=== PATIENT | female | born 1995 | race Hispanic/Latino ===

== ENCOUNTER 2016-04-22 21:51 | Emergency (ER) | payer MEDICAID ==
[2016-04-22 22:07] VITALS: BP 115/78
[2016-04-22 22:57] LABS: Basophils % (Auto) 0.5 % (0.0-1.8); Eosinophils % (Auto) 2.2 % (0.0-4.3); Hematocrit 35.5 % (30.3-42.9); Hemoglobin 12.2 gm/dl (10.1-14.3); Mean Corpuscular HGB Conc 34 % (30-34); Mean Corpuscular Hemoglobin 30 pg (28-32); Mean Corpuscular Volume 86 fl (79-97); Platelet Count 289 K/mm3 (140-440); Red Blood Count 4.12 M/mm3 (3.65-5.03); Red Cell Distribution Width 12.6 % (13.2-15.2); White Blood Count 7.5 K/mm3 (4.5-11.0)
[2016-04-23 00:21] LABS: Bilirubin,Urine NEG (Negative); Blood,Urine LG (Negative); Ketones,Urine NEG (Negative); Leukocyte Esterase,Urine NEG (Negative); Mucus,Urine FEW /HPF; Nitrite,Urine NEG (Negative); Urobilinogen,Urine < 2.0 mg/dL (<2.0)
[2016-04-23 00:30] LABS: RBC,Urine > 182.0 /HPF (0.0-6.0)
[2016-04-23] MEDS ORDERED: NACL 0.9% 1000 ML 1,000 ML IV ONE (00:56)
--- NOTE | 2016-04-23 02:06 | Ultrasound Report ---
FINAL REPORT PROCEDURE: US OB \T\lt; = 14 WEEKS FETUS TECHNIQUE: Real-time transabdominal and transvaginal sonography of the uterus, placenta, amniotic fluid, adnexa, and fetus was performed with image documentation. Measurements were obtained to determine age/size. M-mode Doppler was used to document heartbeat. CPT 36282 and 07116 HISTORY: vaginal bleeding, COMPARISON: No prior studies are available for comparison. FINDINGS: The uterus size is 6.7 x 3.9 x 4.3 centimeters. The endometrium normal at 3 millimeters. There is no evidence of a intrauterine . The right ovary size is 2 x 1.4 x 1.9 centimeters. The echogenicity is normal. The left ovary size is 1.4 x 0.8 x 1.4 centimeters. The left ovary has a normal appearance. The findings may indicate multiple etiologies including early or failure. Ectopic is not excluded on the basis of this single study. The patient will need followup studies which may include serial beta HCG levels and possibly repeat ultrasound approximately 14 days. IMPRESSION: The uterus and both ovaries have a normal appearance. No gestational sac is identified at this time. This may represent multiple etiologies as discussed above. The patient will need followup studies which should include serial beta HCG levels and perhaps repeat ultrasound approximately 14 days.
[2016-04-23] MEDS ORDERED: TYLENOL PO ONE (02:07)
--- NOTE | 2016-04-23 02:07 | Ultrasound Report ---
FINAL REPORT PROCEDURE: US OB \T\lt; = 14 WEEKS FETUS TECHNIQUE: Real-time transabdominal and transvaginal sonography of the uterus, placenta, amniotic fluid, adnexa, and fetus was performed with image documentation. Measurements were obtained to determine age/size. M-mode Doppler was used to document heartbeat. CPT 49166 and 72845 HISTORY: vaginal bleeding, COMPARISON: No prior studies are available for comparison. FINDINGS: The uterus size is 6.7 x 3.9 x 4.3 centimeters. The endometrium normal at 3 millimeters. There is no evidence of a intrauterine . The right ovary size is 2 x 1.4 x 1.9 centimeters. The echogenicity is normal. The left ovary size is 1.4 x 0.8 x 1.4 centimeters. The left ovary has a normal appearance. The findings may indicate multiple etiologies including early or failure. Ectopic is not excluded on the basis of this single study. The patient will need followup studies which may include serial beta HCG levels and possibly repeat ultrasound approximately 14 days. IMPRESSION: The uterus and both ovaries have a normal appearance. No gestational sac is identified at this time. This may represent multiple etiologies as discussed above. The patient will need followup studies which should include serial beta HCG levels and perhaps repeat ultrasound approximately 14 days.
--- NOTE | 2016-04-23 03:48 | Emergency Department Report ---
HPI - General Chief Complaint: Vaginal Bleeding Time Seen by Provider: 04/23/16 01:01 - HPI HPI: The patient is a 20-year-old female, , EGA 3-4 weeks, who presents for evaluation of abdominal pain and vaginal bleeding. The patient reports suprapubic abdominal pain, cramping in quality, mild in severity, for the past 3 days, although waxing and waning, constant since onset. She also reports associated vaginal spotting. The patient denies fever, chills, night sweats, diarrhea, blood in the stool, dark tarry stool, dysuria, hematuria, flank pain, genital discharge, inability to pass flatus. ED Past Medical Hx - Past Medical History Previous Medical History?: No - Surgical History Past Surgical History?: Yes Additional Surgical History: open heart surgery as infant - Social History Smoking Status: Never Smoker Substance Use Type: None - Medications Home Medications: Home Medications Medication Instructions Recorded Confirmed Last Taken Type Acetaminophen/Codeine [Tylenol #3] 1 tab PO Q6H PRN #7 tab 04/23/16 Unknown Rx Pnv95/Ferrous Fumarate/FA 1 each PO QDAY #31 tablet 04/23/16 Unknown Rx [ Vitamin Tablet] ED Review of Systems ROS: Stated complaint: VAGINAL BLEEDING Other details as noted in HPI Constitutional: denies: fever ENT: denies: throat or neck pain Respiratory: denies: cough, shortness of breath Cardiovascular: denies: chest pain Endocrine: denies unexplained weight loss or gain Gastrointestinal: reports abdominal pain, nausea Genitourinary: reports VB denies: dysuria Musculoskeletal: denies: leg swelling Skin: denies: rash Neurological: denies: headache Hematological/Lymphatic: denies: easy bleeding or easy bruising Psych: denies sadness or hopelessness Physical Exam - Physical Exam Vital Signs: Vital Signs 04/22/16 22:04 Temperature 98.5 F Pulse Rate 65 Respiratory 18 Rate Blood Pressure 115/78 Blood Pressure 115/78 [Left] O2 Sat by Pulse 100 Oximetry Physical Exam: General: well-nourished, well-developed, no acute distress Head: Normocephalic, atraumatic Eyes: normal sclera ENT: Mucous membranes are pink and moist Neck: trachea midline, neck supple, No neck stiffness, no cervical adenopathy Respiratory: Breath sounds equal bilaterally, no wheezing, rales, or rhonchi Cardio: S1 and S2 present, no murmurs, rubs, gallops, capillary refill is brisk Abdomen: Normoactive bowel sounds, soft abdomen, suprapubic tenderness to palpation present, no rigidity, no guarding or rebound tenderness Musc: No pitting edema Skin: No rash Neuro: no facial drooping, normal speech Psych: Normal affect ED Course Vital Signs 04/22/16 22:04 Temperature 98.5 F Pulse Rate 65 Respiratory 18 Rate Blood Pressure 115/78 Blood Pressure 115/78 [Left] O2 Sat by Pulse 100 Oximetry ED Medical Decision Making - Lab Data Result diagrams: 04/22/16 22:35 - Medical Decision Making The patient was seen and examined by myself. The patient is placed on a surveillance monitor and continuous pulse ox. On initial evaluation, the patient was found to be in no distress. Evaluation orders are placed. The patient is given 1 L normal saline fluid bolus and Tylenol for her pain. Lab results were non-concerning, and revealed B hCG of 1400 with positive Rh blood screen. Ultrasound of the pelvis is negative for gestational sac. The patient was reevaluated and reported that their symptoms were markedly improved. The patient is stable for discharge with outpatient follow-up. The patient is given follow-up and return instructions, including to obtain repeat beta hCG in 48 hours. The patient expressed understanding and agreed with the plan. The patient is discharged in stable condition. Critical care attestation.: If time is entered above; I have spent that time in minutes in the direct care of this critically ill patient, excluding procedure time. ED Disposition Clinical Impression: Threatened miscarriage in early , Vaginal bleeding, Suprapubic pain Disposition: DISCHARGED TO HOME OR SELFCARE Is pt being admited?: No Does the pt Need Aspirin: No Condition: Stable Instructions: Threatened Miscarriage (ED), Abdominal Pain in (ED) Additional Instructions: Your ultrasound was unable to identify a normal intrauterine , and also was not able to rule out an ectopic . Make sure to follow-up with your [facility] within the next 48 hours for repeat B-HCG testing and trending. Your beta hCG level should double in 2 days if your is progressing as normal. You could have an ectopic and you must immediately present to an emergency department should you develop worsening of your symptoms or severe pain, vaginal bleeding, lightheadedness, passing out, confusion, or fever. Prescriptions: Acetaminophen/Codeine [Tylenol #3] 1 tab PO Q6H PRN #7 tab PRN Reason: Pain Pnv95/Ferrous Fumarate/FA [ Vitamin Tablet] 1 each PO QDAY #31 tablet Referrals: PRIMARY CARE, [Primary Care Provider] - 3-5 Days [facility] [Provider Group] - 3-5 Days Time of Disposition: 03:07
== END 2016-04-23 04:25 | disposition home or self-care (01) ==
LOC: ED 21:51
DX: O20.0 Threatened abortion (principal); Z3A.01 Less than 8 weeks gestation of pregnancy
CPT/HCPCS: 36415; 76801; 76817; 81001; 84702; 85025; 86900; 86901; 96360; 99284; J7030; 86850

== ENCOUNTER 2016-06-26 14:27 | Emergency (ER) | payer MEDICAID ==
[2016-06-26 15:30] LABS: Basophils % (Auto) 0.7 % (0.0-1.8); Eosinophils % (Auto) 3.3 % (0.0-4.3); Mean Corpuscular HGB Conc 33 % (30-34); Mean Corpuscular Hemoglobin 29 pg (28-32); Mean Corpuscular Volume 87 fl (79-97); Platelet Count 286 K/mm3 (140-440); Red Blood Count 4.48 M/mm3 (3.65-5.03); Red Cell Distribution Width 12.5 % (13.2-15.2); White Blood Count 8.7 K/mm3 (4.5-11.0)
[2016-06-26 16:26] LABS: Alanine Aminotransferase 26 units/L (7-56); Albumin 4.2 g/dL (3.9-5); Albumin/Globulin Ratio 1.4 %; Alkaline Phosphatase 92 units/L (35-129); Anion Gap 19 mmol/L; BUN/Creatinine Ratio 16.66; Blood Urea Nitrogen 10 mg/dL (7-17); Calcium 8.9 mg/dL (8.4-10.2); Carbon Dioxide 23 mmol/L (22-30); Chloride 102.8 mmol/L (98-107); Glucose 88 mg/dL (65-100); Lipase 23 units/L (13-60); Potassium 4.2 mmol/L (3.6-5.0); Sodium 141 mmol/L (137-145); Total Protein 7.2 g/dL (6.3-8.2)
[2016-06-26 18:53] LABS: Bacteria,Urine 1+ /HPF (Negative); Bilirubin,Urine NEG (Negative); Blood,Urine MOD (Negative); Ketones,Urine NEG (Negative); Leukocyte Esterase,Urine MOD (Negative); Mucus,Urine FEW /HPF; Nitrite,Urine NEG (Negative); Protein,Urine <15 mg/dL mg/dL (Negative); Urobilinogen,Urine < 2.0 mg/dL (<2.0)
[2016-06-26] MEDS ORDERED: ZITHROMAX PO ONE (21:32)
--- NOTE | 2016-06-26 21:33 | Emergency Department Report ---
ED Female HPI - General Chief complaint: Abdominal Pain Stated complaint: ABD PAIN Time Seen by Provider: 06/26/16 21:18 Source: patient Mode of arrival: Ambulatory Limitations: No Limitations - History of Present Illness Initial comments: Patient is a 21-year-old female with no past medical history presenting today because of STD exposure. Patient states that she was at a health clinic where they had diagnosed her with Chlamydia and she came here today for treatment of that were unable to give her medication or prescription there. States that she has some small amount of discharge is foul-smelling and is similar to when she had chlamydia in the past. She states that they have done all the rest of the tests for gonorrhea and other STDs at the clinic and was negative. Patient denies any fevers or chills or any other significant symptoms. There is no abdominal pain or pelvic pain. Patient also did have a recent spontaneous on June 20 and is recovering without problems. - Related Data Home Medications Medication Instructions Recorded Confirmed Last Taken No Known Home Medications [No 06/26/16 06/26/16 Unknown Reported Home Medications] Allergies Allergy/AdvReac Type Severity Reaction Status Date / Time No Known Allergies Allergy Verified 04/22/16 21:59 ED Review of Systems ROS: Stated complaint: ABD PAIN Other details as noted in HPI Comment: All other systems reviewed and negative Constitutional: denies: chills, fever ENT: denies: ear pain, throat pain Respiratory: denies: cough Cardiovascular: denies: chest pain Gastrointestinal: denies: abdominal pain, vomiting Genitourinary: denies: urgency, dysuria Skin: denies: rash Psychiatric: denies: anxiety ED Past Medical Hx - Past Medical History Previous Medical History?: No - Surgical History Additional Surgical History: open heart surgery as infant - Social History Smoking Status: Never Smoker Substance Use Type: None - Medications Home Medications: Home Medications Medication Instructions Recorded Confirmed Last Taken Type No Known Home Medications [No 06/26/16 06/26/16 Unknown History Reported Home Medications] ED Physical Exam - General Limitations: No Limitations General appearance: alert, in no apparent distress - Head Head exam: Present: atraumatic - Eye Eye exam: Present: normal appearance - ENT ENT exam: Present: normal exam - Respiratory Respiratory exam: Present: normal lung sounds bilaterally. Absent: respiratory distress - Cardiovascular Cardiovascular Exam: Present: regular rate, normal rhythm - GI/Abdominal GI/Abdominal exam: Present: soft. Absent: distended, tenderness - Neurological Exam Neurological exam: Present: alert, oriented X3 - Psychiatric Psychiatric exam: Present: normal affect - Skin Skin exam: Present: intact ED Course Vital Signs 06/26/16 06/26/16 15:05 21:53 Temperature 98.3 F Pulse Rate 71 59 L Respiratory 20 16 Rate Blood Pressure 93/55 Blood Pressure 103/56 [Right] O2 Sat by Pulse 99 100 Oximetry ED Medical Decision Making - Lab Data Result diagrams: 06/26/16 15:13 06/26/16 15:13 Critical care attestation.: If time is entered above; I have spent that time in minutes in the direct care of this critically ill patient, excluding procedure time. ED Disposition Clinical Impression: Chlamydia infection Disposition: DISCHARGED TO HOME OR SELFCARE Is pt being admited?: No Does the pt Need Aspirin: No Condition: Stable Instructions: Chlamydia Infection (ED), Abdominal Pain (ED) Additional Instructions: Please follow up with your primary care physician in the next 3-5 days. Return to the ER if your symptoms significantly worsen or you develop new symptoms. Referrals: PRIMARY CARE,MD [Primary Care Provider] - 3-5 Days Forms: STI Treatment and Prevention, Work/School Release Form(ED) Time of Disposition: 21:35
[2016-06-26 21:55] VITALS: BP 103/56
== END 2016-06-26 21:55 | disposition home or self-care (01) ==
LOC: ED 14:27
DX: A74.9 Chlamydial infection, unspecified (principal)
CPT/HCPCS: 36415; 80053; 81001; 81025; 83690; 84703; 85025; 99283

== ENCOUNTER 2016-07-10 21:08 | Emergency (ER) | payer MEDICAID | END 2016-07-10 22:10 | disposition left against medical advice (07) | LOC: ED 21:08 | DX: R06.09 Other forms of dyspnea (principal); Z53.21 Procedure and treatment not carried out due to patient leaving prior to being seen by health care provider ==

== ENCOUNTER 2016-07-11 07:24 | Emergency (ER) | payer MEDICAID ==
[2016-07-11 07:33] VITALS: BP 105/62
--- NOTE | 2016-07-11 08:18 | Emergency Department Report ---
ED ENT HPI - General Chief complaint: Sore Throat Stated complaint: JEANETTE/POSS STREP THROAT Time Seen by Provider: 07/11/16 08:14 Source: patient Mode of arrival: Ambulatory Limitations: No Limitations - History of Present Illness Initial comments: Plan a sore throat and fever for the past 2 days. complaint: sore throat - Related Data Previous Rx's Medication Instructions Recorded Last Taken Type Amoxicillin [Amoxicillin TAB] 875 mg PO BID #20 tablet 07/11/16 Unknown Rx Allergies Allergy/AdvReac Type Severity Reaction Status Date / Time No Known Allergies Allergy Verified 04/22/16 21:59 ED Dental HPI - General Chief complaint: Sore Throat Stated complaint: JEANETTE/POSS STREP THROAT Time Seen by Provider: 07/11/16 08:14 Source: patient Mode of arrival: Ambulatory Limitations: No Limitations - History of Present Illness MD complaint: tooth pain, sore throat -: Gradual, days(s) Severity: moderate Quality: burning, aching Worsens with: swallowing, chewing, hot/cold liquids Context- Dental: history of dental caries, poor dental care - Related Data Previous Rx's Medication Instructions Recorded Last Taken Type Amoxicillin [Amoxicillin TAB] 875 mg PO BID #20 tablet 07/11/16 Unknown Rx Allergies Allergy/AdvReac Type Severity Reaction Status Date / Time No Known Allergies Allergy Verified 04/22/16 21:59 ED Review of Systems ROS: Stated complaint: JEANETTE/POSS STREP THROAT Other details as noted in HPI Constitutional: fever, malaise. denies: chills Eyes: denies: eye pain, eye discharge, vision change ENT: throat pain. denies: ear pain Respiratory: denies: cough, shortness of breath, wheezing Cardiovascular: denies: chest pain, palpitations Endocrine: no symptoms reported Gastrointestinal: denies: abdominal pain, nausea, diarrhea Genitourinary: denies: urgency, dysuria, discharge Musculoskeletal: denies: back pain, joint swelling, arthralgia Skin: denies: rash, lesions Neurological: denies: headache, weakness, paresthesias Psychiatric: denies: anxiety, depression Hematological/Lymphatic: denies: easy bleeding, easy bruising ED Past Medical Hx - Past Medical History Previous Medical History?: No - Surgical History Past Surgical History?: Yes Additional Surgical History: open heart surgery as infant - Social History Smoking Status: Never Smoker Substance Use Type: Non Opiate Pain, Other - Medications Home Medications: Home Medications Medication Instructions Recorded Confirmed Last Taken Type Amoxicillin [Amoxicillin TAB] 875 mg PO BID #20 tablet 07/11/16 Unknown Rx ED Physical Exam - General Limitations: No Limitations General appearance: alert, in no apparent distress - Head Head exam: Present: atraumatic, normocephalic - Eye Eye exam: Present: normal appearance, PERRL, EOMI - ENT ENT exam: Present: mucous membranes moist - Expanded ENT Exam Expanded Throat exam: Positive: tonsillar erythema, tonsillar exudate. Negative: R peritonsillar mass, L peritonsillar mass - Neck Neck exam: Present: normal inspection - Respiratory Respiratory exam: Present: normal lung sounds bilaterally. Absent: respiratory distress - Cardiovascular Cardiovascular Exam: Present: regular rate, normal rhythm. Absent: systolic murmur, diastolic murmur, rubs, gallop - GI/Abdominal GI/Abdominal exam: Present: soft, normal bowel sounds - Extremities Exam Extremities exam: Present: normal inspection - Back Exam Back exam: Present: normal inspection - Neurological Exam Neurological exam: Present: alert, oriented X3 - Psychiatric Psychiatric exam: Present: normal affect, normal mood - Skin Skin exam: Present: warm, dry, intact, normal color. Absent: rash ED Course Vital Signs 07/11/16 07:30 Temperature 98.1 F Pulse Rate 73 Respiratory 20 Rate Blood Pressure 105/62 O2 Sat by Pulse 99 Oximetry Critical care attestation.: If time is entered above; I have spent that time in minutes in the direct care of this critically ill patient, excluding procedure time. ED Disposition Clinical Impression: Pharyngitis Disposition: DISCHARGED TO HOME OR SELFCARE Is pt being admited?: No Condition: Stable Instructions: Pharyngitis (ED) Prescriptions: Amoxicillin [Amoxicillin TAB] 875 mg PO BID #20 tablet Referrals: PRIMARY CARE, [Primary Care Provider] - 3-5 Days Forms: Work/School Release Form(ED)
== END 2016-07-11 08:39 | disposition home or self-care (01) ==
LOC: ED 07:24
DX: J02.9 Acute pharyngitis, unspecified (principal)
CPT/HCPCS: 99282

== ENCOUNTER 2016-07-17 07:39 | Emergency (ER) | payer MEDICAID ==
[2016-07-17 07:53] VITALS: BP 120/99
[2016-07-17 09:08] LABS: Bacteria,Urine 1+ /HPF (Negative); Bilirubin,Urine NEG (Negative); Blood,Urine SM (Negative); Ketones,Urine NEG (Negative); Leukocyte Esterase,Urine LG (Negative); Mucus,Urine FEW /HPF; Nitrite,Urine NEG (Negative); Protein,Urine <15 mg/dL mg/dL (Negative); Urobilinogen,Urine < 2.0 mg/dL (<2.0)
--- NOTE | 2016-07-17 09:20 | Emergency Department Report ---
ED ENT HPI - General Chief complaint: Dental/Oral Stated complaint: SWOLLEN TONGUE Time Seen by Provider: 07/17/16 09:15 Source: patient Mode of arrival: Ambulatory Limitations: No Limitations - History of Present Illness Initial comments: 21-year-old female past medical history none presents with complaint of concern for a lesion on her tongue. Patient states that she she was concerned she may have had oral herpes as she saw a lesion on the side of her tongue which was concerning. Patient is awake alert and oriented 3 not in acute distress speaking in full sentences no audible wheezing or stridor. States she was treated a week ago for strep throat. Denies any fevers chills pus or blood drainage from mouth no recent dental work. Denies any tongue pain. MD complaint: other Onset/Timin -: week(s) Location: tongue Severity: mild Worsens with: none - Related Data Previous Rx's Medication Instructions Recorded Last Taken Type Amoxicillin [Amoxicillin TAB] 875 mg PO BID #20 tablet 07/11/16 Unknown Rx Chlorhexidine Mouthwash [Peridex] 118 ml MM BID #1 bottle 07/17/16 Unknown Rx Allergies Allergy/AdvReac Type Severity Reaction Status Date / Time No Known Allergies Allergy Verified 04/22/16 21:59 ED Dental HPI - General Chief complaint: Dental/Oral Stated complaint: SWOLLEN TONGUE Time Seen by Provider: 07/17/16 09:15 Source: patient Mode of arrival: Ambulatory Limitations: No Limitations - Related Data Previous Rx's Medication Instructions Recorded Last Taken Type Amoxicillin [Amoxicillin TAB] 875 mg PO BID #20 tablet 07/11/16 Unknown Rx Chlorhexidine Mouthwash [Peridex] 118 ml MM BID #1 bottle 07/17/16 Unknown Rx Allergies Allergy/AdvReac Type Severity Reaction Status Date / Time No Known Allergies Allergy Verified 04/22/16 21:59 ED Review of Systems ROS: Stated complaint: SWOLLEN TONGUE Other details as noted in HPI Constitutional: denies: chills, fever Eyes: denies: eye pain, eye discharge, vision change ENT: throat pain (HUS treated for strep throat one week ago). denies: ear pain Respiratory: denies: cough, shortness of breath, wheezing Cardiovascular: denies: chest pain, palpitations Endocrine: no symptoms reported Gastrointestinal: denies: abdominal pain, nausea, diarrhea Genitourinary: denies: urgency, dysuria, discharge Musculoskeletal: denies: back pain, joint swelling, arthralgia Skin: denies: rash, lesions Neurological: denies: headache, weakness, paresthesias Psychiatric: denies: anxiety, depression Hematological/Lymphatic: denies: easy bleeding, easy bruising ED Past Medical Hx - Past Medical History Previous Medical History?: Yes Additional medical history: Sore throat - Surgical History Past Surgical History?: Yes Additional Surgical History: open heart surgery as - Social History Smoking Status: Never Smoker Substance Use Type: Prescribed - Medications Home Medications: Home Medications Medication Instructions Recorded Confirmed Last Taken Type Amoxicillin [Amoxicillin TAB] 875 mg PO BID #20 tablet 07/11/16 Unknown Rx Chlorhexidine Mouthwash [Peridex] 118 ml MM BID #1 bottle 07/17/16 Unknown Rx ED Physical Exam - General Limitations: No Limitations General appearance: alert, in no apparent distress - Head Head exam: Present: atraumatic, normocephalic - Eye Eye exam: Present: normal appearance - ENT ENT exam: Present: mucous membranes moist - Expanded ENT Exam Expanded Throat exam: Positive: other (possible slight geographic tongue on exam no visible exudates no signs of Amauri's angina no oral erythematous lesions to suggest oral herpes or coxsackie) - Neck Neck exam: Present: normal inspection - Respiratory Respiratory exam: Present: normal lung sounds bilaterally. Absent: respiratory distress - Cardiovascular Cardiovascular Exam: Present: regular rate, normal rhythm. Absent: systolic murmur, diastolic murmur, rubs, gallop - GI/Abdominal GI/Abdominal exam: Present: soft, normal bowel sounds - Extremities Exam Extremities exam: Present: normal inspection - Back Exam Back exam: Present: normal inspection - Neurological Exam Neurological exam: Present: alert, oriented X3 - Psychiatric Psychiatric exam: Present: normal affect, normal mood - Skin Skin exam: Present: warm, dry, intact, normal color. Absent: rash ED Course Vital Signs 07/17/16 07:49 Temperature 98.2 F Pulse Rate 60 Respiratory 18 Rate Blood Pressure 120/99 O2 Sat by Pulse 100 Oximetry ED Medical Decision Making - Medical Decision Making A/P: Geographic tongue 1-strep test negative, no clinical signs of oral herpetic lesion. No tonsillar exudates no desquamating lesion inside mouth no clinical signs of Amauri's angina no intraoral cellulitis no signs of peritonsillar abscess, uvula midline with no signs of tongue swelling 2-follow-up with ENT referral to ENT 3-Peridex mouthwash Critical care attestation.: If time is entered above; I have spent that time in minutes in the direct care of this critically ill patient, excluding procedure time. ED Disposition Clinical Impression: Geographic tongue Disposition: DC- TO HOME OR SELFCARE Is pt being admited?: No Does the pt Need Aspirin: No Condition: Stable Prescriptions: Chlorhexidine Mouthwash [Peridex] 118 ml MM BID #1 bottle Referrals: MARTHA KAHN MD [Staff Physician] - 3-5 Days [facility] [Provider Group] - 3[facility] - 3-5 Days Forms: Work/School Release Form(ED) Time of Disposition: 10:16
== END 2016-07-17 10:25 | disposition home or self-care (01) ==
LOC: ED 07:39
DX: K14.1 Geographic tongue (principal)
CPT/HCPCS: 81001; 81025; 87116; 87430; 99283